=== PATIENT | female | born 2000 | race Caucasian/White ===

== ENCOUNTER → 2023-08-28 08:53 | Outpatient (REF) | payer BC, SELFPAY | LOC: PNTC 08:53 | PROVIDERS: ATTENDING PHYSICIAN Obstetrics & Gynecology | DX: Z36.82 Encounter for antenatal screening for nuchal translucency (principal); Z36.0 Encounter for antenatal screening for chromosomal anomalies | CPT/HCPCS: 36415; 76801; 76813 ==

== ENCOUNTER → 2023-09-25 08:51 | Outpatient (REF) | payer BC, SELFPAY | LOC: PNTC 08:51 | PROVIDERS: ATTENDING PHYSICIAN Obstetrics & Gynecology | DX: O99.210 Obesity complicating pregnancy, unspecified trimester (principal); O09.92 Supervision of high risk pregnancy, unspecified, second trimester; O09.899 Supervision of other high risk pregnancies, unspecified trimester | CPT/HCPCS: 76805 ==